=== PATIENT | female | born 1945 ===

== ENCOUNTER → 2019-06-21 | Outpatient (CLI) | payer MEDICARE, OTHER ==
[~2019-06-21] MED LIST: AZEL137S NS; CETI-459 PO; ESCI20TA38 PO; FLUT16SP19; GABA-549 PO; IBUP800T37 PO; MONT10TA PO; NAPR220C12 PO
== END ==
LOC: LAB 14:22
PROVIDERS: ATTEND Physician Assistant
DX: J30.9 Allergic rhinitis, unspecified (principal)
CPT/HCPCS: 36415; 86003